=== PATIENT | female | born 1990 | race Caucasian/White ===

== ENCOUNTER 2017-07-30 11:28 | Emergency (ER) | payer MEDICAID ==
[~2017-07-30] VITALS: Ht 152.4 cm; Wt 64.6 kg
[2017-07-30 11:32] VITALS: BP 108/60
--- NOTE | 2017-07-30 11:38 | NUR ---
27/f bib mom c/o COUGH, SORE THORAT, RIGHT EAR ACHE X 1 1/2 WEEKS. DENIES N/V/D; SKIN IS PINK/WARM/DRY; AAOX4 WITH EVEN AND STEADY GAIT; LUNGS CLEAR BL; PATIENT STATES PAIN OF 8/10 AT THIS TIME;PATIENT POSITIONED FOR COMFORT; HOB ELEVATED; BEDRAILS UP X2; BED DOWN. ER MD MADE AWARE OF PT STATUS.
--- NOTE | 2017-07-30 11:38 | NUR ---
PATIENT TO OF#3 AT THIS TIME.
[2017-07-30 12:06] VITALS: BP 108/60
--- NOTE | 2017-07-30 12:07 | NUR ---
Patient discharged with v/s stable. Written and verbal after care instructions given and explained. Patient alert, oriented and verbalized understanding of instructions. Ambulatory with steady gait. All questions addressed prior to discharge. ID band removed. Patient advised to follow up with PMD. Rx of Z PACK, MOTRIN, AND COUGH SYRUP given. Patient educated on indication of medication including possible reaction and side effects. Opportunity to ask questions provided and answered.
== END 2017-07-30 12:07 | disposition home or self-care (01) ==
LOC: MED 11:28
DX: J40 Bronchitis, not specified as acute or chronic (principal)
CPT/HCPCS: 99283